=== PATIENT | male | born 1985 | race Caucasian/White ===

== ENCOUNTER 2019-04-01 04:20 | Emergency (ER) | payer SELFPAY ==
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
[2019-04-01] MEDS ORDERED: IBUPROFEN 800 MG TAB PO ONE (04:29)
[2019-04-01] MEDS ORDERED: TDAP ADULT 0.5 ML INJ (BOOSTRIX) IM ONE (04:32)
[2019-04-01 06:21] VITALS: BP 120/73
== END 2019-04-01 06:22 | disposition home or self-care (01) ==
DX: S02.2XXA Fracture of nasal bones, initial encounter for closed fracture (principal); Y04.8XXA Assault by other bodily force, initial encounter; Z23 Encounter for immunization